=== PATIENT | female | born 1945 | race Caucasian/White ===

== ENCOUNTER 2024-09-27 08:42 | Day surgery (SDC) | payer MEDICARE, OTHER ==
[~2024-09-27 08:42] MED LIST: Ondansetron 4 MG/2 ML SDV IVPUSH PRN; Sodium Chloride 0.9% 10 ML Syringe FLUSH PRN; Sodium Chloride 0.9% 10 ML Syringe FLUSH SCH; fentaNYL 100 MCG/2 ML SDV IVPUSH PRN
[2024-09-27] MEDS ORDERED: propofoL 500 MG/50 ML 50 ML ONE (08:54)
[2024-09-27] MEDS ORDERED: fentaNYL 100 MCG/2 ML SDV ONE (08:54)
[2024-09-27] MEDS ORDERED: Midazolam 1 MG/ML 2 ML SDV ONE (08:54)
[2024-09-27] MEDS ORDERED: Ropivacaine 0.5% 5 MG/ML 30 ML SDV ONE (08:54)
[2024-09-27] MEDS: Lactated Ringers 1,000 ML IV SCH (09:15)
[2024-09-27] MEDS ORDERED: Betamethasone Acetate/Betamethasone Sod Phosphate 6 MG/1 ML MDV ONE (10:06)
[2024-09-27] MEDS ORDERED: Triamcinolone Acetonide 40 MG/ML 1 ML SDV ONE (10:46)
[2024-09-27] MEDS ORDERED: Lactated Ringers 1,000 ML ONE (11:05)
[2024-09-27] MEDS ORDERED: ePHEDrine 50 MG/ML SDV ONE (11:23)
[2024-09-27] MEDS: Morphine 8 MG, EPINEPHrine 0.3 MG, Cefuroxime 750 MG, Ketorolac 30 MG, Sodium Chloride ... PRN (12:16)
[2024-09-27] MEDS: Triamcinolone Acetonide 40 MG/ML 1 ML SDV ONE (12:47)
[2024-09-27] MEDS ORDERED: Acetaminophen/HYDROcodone 325-5 MG Tab PO SCH (13:45)
== END 2024-09-27 15:36 | disposition home or self-care (01) ==
LOC: JD.SDS 08:42
PROVIDERS: ATTEND Orthopaedic Surgery
DX: M17.0 Bilateral primary osteoarthritis of knee (principal); E03.9 Hypothyroidism, unspecified; I10 Essential (primary) hypertension; E78.5 Hyperlipidemia, unspecified; Z79.890 Hormone replacement therapy; Z79.899 Other long term (current) drug therapy; G89.18 Other acute postprocedural pain
CPT/HCPCS: 0055T; 20610; 27447; 64447; 73560; 97116; 97161; 97530; C1713; C1776; J0171; J0665; J0690; J0697; J1885; J2250; J2272; J2704; J2795; J3010; J3301; J3373; J7120; 01402; 99100; J0702; J3490